=== PATIENT | female | born 1990 | race Caucasian/White ===

== ENCOUNTER 2017-05-31 04:51 | Emergency (ER) | payer OTHER ==
[2017-05-31 05:29] VITALS: BP 117/78; PULSE 74; TEMP 97.8; BMI 30.1
--- NOTE | 2017-05-31 05:41 | PDOC ---
History of Present Illness <Jcarlos Cortes - Last Filed: 05/31/17 05:42> - General History Source: Patient Exam Limitations: No Limitations - History of Present Illness Initial Comments: 05/31/17 06:33 The patient is a 26 year old female with no significant past medical history who presents to the ED for right ear discomfort prior to arrival. Patient reports she woke up around 3:30am when she felt disocmfort and ""something crawling"" in her right ear. States she shook her head and subsequently felt the sensation resolved, but her right ear felt clogged. Denies any recent cold- like symptoms except for sneezing secondary to seasonal allergies. Denies loss of hearing. The patient denies fever, chills, cough, SOB, chest pain, and palpitations. The patient denies abdominal pain, nausea, vomiting, and diarrhea. <Yina Kline - Last Filed: 05/31/17 06:34> - General Chief Complaint: Ear Problem Stated Complaint: EAR PAIN Time Seen by Provider: 05/31/17 05:10 Past History - Psycho/Social/Smoking Cessation Hx Suicidal Ideation: No Smoking History: Never smoked Have you smoked in the past 12 months: No Information on smoking cessation initiated: No Hx Alcohol Use: No Drug/Substance Use Hx: No Substance Use Type: None <Jcarlos Cortes - Last Filed: 05/31/17 05:42> <Yina Kline - Last Filed: 05/31/17 06:34> - Past Medical History Allergies/Adverse Reactions: Allergies Allergy/AdvReac Type Severity Reaction Status Date / Time No Known Allergies Allergy Verified 05/31/17 05:12 Home Medications: Ambulatory Orders NK [No Known Home Medication] 05/31/17 Review of Systems - Review of Systems Able to Perform ROS?: Yes Comments:: 05/31/17 06:33 CONSTITUTIONAL: No reported: Fever, Chills, Diaphoresis, Generalized Weakness, Malaise, Loss of Appetite HEENT: +right ear discomfort and fullness sensation No reported: Rhinorrhea, Nasal Congestion, Throat Pain, Throat Swelling, Difficulty Swallowing, Mouth Swelling , Eye Pain, Visual Changes MUSCULOSKELETAL: No reported: Myalgia, Arthralgia, Joint Swelling, Back pain, Neck Pain SKIN: No reported: Rash, Itching, Pallor NEUROLOGIC: No reported: Headache, Focal Weakness, Paresthesias, Vertigo, Lightheadedness, Unsteady Gait, Seizure, Mental Status Changes, Incontinence <RaisaYina - Last Filed: 05/31/17 06:34> *Physical Exam - Vital Signs Last Vital Signs Temp Pulse Resp BP Pulse Ox 97.8 F 74 18 117/78 100 05/31/17 05:10 05/31/17 05:10 05/31/17 05:10 05/31/17 05:10 05/31/17 05:10 <Jcarlos Cortes - Last Filed: 05/31/17 05:42> - Vital Signs Last Vital Signs Temp Pulse Resp BP Pulse Ox 97.8 F 74 18 117/78 100 05/31/17 05:10 05/31/17 05:10 05/31/17 05:10 05/31/17 05:10 05/31/17 05:10 - Physical Exam Comments: 05/31/17 06:34 GENERAL: The patient is awake, alert, and fully oriented, Nontoxic - in no acute distress. HEAD: Normocephalic, atraumatic. EYES: extraocular movements intact, sclera anicteric, conjunctiva clear. ENT: Normal voice, Moist mucous membranes. Dull TM bilaterally, no erythema, no fluid level, no mastoid tenderness NECK: Normal range of motion, supple. No cervical lymphadenopathy. EXTREMITIES: Normal range of motion, no edema. No clubbing or cyanosis. No cords , erythema, or tenderness. NEUROLOGICAL: No facial assymetry, Normal speech, SKIN: Warm, Dry, normal turgor, <RaisaYina - Last Filed: 05/31/17 06:34> Medical Decision Making - Medical Decision Making 05/31/17 05:39 26y F no pmhx presens with sensation of something crawling inher hear when she was sleeping and is feeling a fulness sensation in her R ear. no other complaints including fever/chills, ear pain, headache, or other complaints.\\no signs of otitis media/externa no fb noted in ear a bit dull tm, but no erythema, fluid level or other abnormalites noted will dc the pt with supportive management and ENT fu if not better I discussed the physical exam findings, ancillary test results and final diagnoses with the patient. I answered all of the patient's questions. The patient was satisfied with the care received and felt comfortable with the discharge plan and treatment plan. The patient will call their primary care physician within 24 hours to arrange follow-up and will return to the Emergency Department with any new, persistent or worsening symptoms. A portion of this note was documented by scribe services under my direction. I have reviewed the details of the note, within reason, and agree with the documentation with the following case summary and management plan written by me <Jcarlos Cortes - Last Filed: 05/31/17 05:42> *DC/Admit/Observation/Transfer - Discharge Dispostion Admit: No <Jcarlos Cortes - Last Filed: 05/31/17 05:42> - Attestations Scribe Attestion: 05/31/17 06:34 Documentation prepared by Yina Kline, acting as medical sales consultant for Jcarlos Cortes MD, /DO. <Yina Kline - Last Filed: 05/31/17 06:34> Diagnosis at time of Disposition: Ear fullness Qualifiers: Laterality: right Qualified Code(s): H93.8X1 - Other specified disorders of right ear - Discharge Dispostion Disposition: HOME Condition at time of disposition: Improved - Referrals Referrals: Hua Ruiz MD [Staff Physician] - - Patient Instructions Printed Discharge Instructions: DI for Ear Pain-Adult Additional Instructions: If your symptoms do not improve in 2-3 days or if it is worse or he has difficulty hearing, headache, fevers, chills or other concerns please follow-up with ENT. Print Language: CHADIAN
== END 2017-05-31 05:55 | disposition home or self-care (01) ==
LOC: JER 04:51
DX: H93.8X1 Other specified disorders of right ear (principal)
CPT/HCPCS: 99281-25

== ENCOUNTER 2017-07-01 06:11 | Inpatient (IN) | payer OTHER ==
[2017-07-01] MEDS ORDERED: ACETAMINOPHEN 325 MG TABLET (FP) PO ONE (06:49)
[2017-07-01] MEDS ORDERED: ACETAMINOPHEN 325 MG TABLET (FP) ONE (06:57)
--- NOTE | 2017-07-01 07:17 | PDOC ---
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 Dutta is a 26 year old female with significant past medical history of IUD who presents to the emergency department with 1 week history of perineal pain that has been increasing over the past week. She reports the pain is increased with any pressure either directly or sitting and that she has had difficulty urinating / defecating due to the pain (however denies pain with actual urination or defecation). She saw an OBGYN 3 days ago who prescribed aleve and had an US done yesterday with no positive results. The patient denies chest pain, shortness of breath, headache and dizziness. Denies fever, chills, nausea, vomit, diarrhea and constipation. Denies dysuria, frequency, urgency and hematuria. Allergies: NKDA Past surgical history: 2 c-sections Social history: social EtOH PMD - None 07/01/17 08:03 Past History - Past Medical History Allergies/Adverse Reactions: Allergies Allergy/AdvReac Type Severity Reaction Status Date / Time No Known Allergies Allergy Verified 07/01/17 06:32 Home Medications: Ambulatory Orders NK [No Known Home Medication] 05/31/17 Other medical history: Pt denies - Psycho/Social/Smoking Cessation Hx Suicidal Ideation: No Smoking History: Never smoked Have you smoked in the past 12 months: No Information on smoking cessation initiated: No Hx Alcohol Use: No Drug/Substance Use Hx: No Substance Use Type: None Review of Systems - Review of Systems Comments:: 07/01/17 07:08 GENERAL/CONSTITUTIONAL: No fever or chills. No weakness. HEAD, EYES, EARS, NOSE AND THROAT: No change in vision. No ear pain or discharge. No sore throat. CARDIOVASCULAR: No chest pain or shortness of breath RESPIRATORY: No cough, wheezing, or hemoptysis. GASTROINTESTINAL: +1 week history of perineal pain. No nausea, vomiting, diarrhea or constipation. GENITOURINARY: No dysuria, frequency, or change in urination. MUSCULOSKELETAL: No joint or muscle swelling or pain. No neck or back pain. SKIN: No rash NEUROLOGIC: No headache, vertigo, loss of consciousness, or change in strength/ sensation. ENDOCRINE: No increased thirst. No abnormal weight change HEMATOLOGIC/LYMPHATIC: No anemia, easy bleeding, or history of blood clots. ALLERGIC/IMMUNOLOGIC: No hives or skin allergy. *Physical Exam - Vital Signs Last Vital Signs Temp Pulse Resp BP Pulse Ox 97.9 F 104 H 20 124/76 99 07/01/17 06:33 07/01/17 06:33 07/01/17 06:33 07/01/17 06:33 07/01/17 06:33 - Physical Exam Comments: 07/01/17 07:08 GENERAL: +Patient uncomfortable appearing. Awake, alert, and fully oriented, in no acute distress HEAD: No signs of trauma, normocephalic, atraumatic EYES: PERRLA, EOMI, sclera anicteric, conjunctiva clear ENT: Auricles normal inspection, hearing grossly normal, nares patent, oropharynx clear without exudates. Moist mucosa NECK: Normal ROM, supple, no lymphadenopathy, JVD, or masses LUNGS: No distress, speaks full sentences, clear to auscultation bilaterally HEART: Regular rate and rhythm, normal S1 and S2, no murmurs, rubs or gallops, peripheral pulses normal and equal bilaterally. ABDOMEN: Soft, nontender, normoactive bowel sounds. No guarding, no rebound. No masses EXTREMITIES: Normal inspection, Normal range of motion, no edema. No clubbing or cyanosis. NEUROLOGICAL: Cranial nerves II through XII grossly intact. Normal speech, normal gait, no focal sensorimotor deficits SKIN: Warm, Dry, normal turgor, no rashes or lesions noted. : +Pelvic exam positive for cabrera cottage cheese exudate ED Treatment Course - LABORATORY CBC & Chemistry Diagram: 07/01/17 08:06 07/01/17 08:10 Medical Decision Making - Medical Decision Making 07/01/17 08:05 Ms. Dutta presents with 1 week history of perineal pain. She denies any change in bowel movements or urinating and she and her are monogamous with no other sexual partners (confirmed individually while out of the room). Pelvic exam yielded classic cabrera cottage cheese type exudate. Suspect cause of symptoms but after negative outside US will get Pelvic CT to r/o other pathology. 07/01/17 09:10 Serum negative, 150 mg oral diflucan given to treat yeast infection. 07/01/17 10:31 Perineal fluid collection noted as abscess on CT as well as proctitis. Will admit to [facility] for management. 07/01/17 11:57 Discussed pt w/ Dr. Larkin for surgery. Trae will consult and take pt for surgery today if able. *DC/Admit/Observation/Transfer Diagnosis at time of Disposition: Proctitis, Abscess - Discharge Dispostion Admit: Yes - Referrals - Attestations Physician Attestion: 07/01/17 08:07 I, Dr. Marco Antonio Maier, attest that this document has been prepared under my direction and personally reviewed by me in its entirety. I further attest, that it accurately reflects all work, treatment, procedures and medical decision -making performed by me.
--- NOTE | 2017-07-01 07:58 | PDOC ---
Attending Attestation - Resident Resident Name: Marco Antonio Maier - ED Attending Attestation I have performed the following: I have examined & evaluated the patient, The case was reviewed & discussed with the resident, I agree w/resident's findings & plan, Exceptions are as noted - HPI HPI: 07/01/17 07:54 26-year-old female with no past medical history presents with perineal pain for one week. Patient reports that she's not been sexually active this week. She is accompanied by her . Patient reported a constant achy perineal pain. Denies dysuria, vaginal discharge, diarrhea or rectal pain. 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 2 days ago, had an ultrasound which does show no acute finding. Patient does have an IUD. Denies fevers or chills. Came to the ED for further evaluation. - Physicial Exam PE: 07/01/17 07:57 GENERAL: Awake, alert, and fully oriented, in no acute distress. HEAD: No signs of trauma EYES: PERRLA, EOMI, sclera anicteric, conjunctiva clear ENT: Auricles normal inspection, hearing grossly normal, nares patent, oropharynx clear without exudates. NECK: Normal ROM, supple, no lymphadenopathy, JVD, or masses LUNGS: Breath sounds equal, clear to auscultation bilaterally. No wheezes, and no crackles HEART: Regular rate and rhythm, normal S1 and S2, no murmurs, rubs or gallops ABDOMEN: Soft, nontender, normoactive bowel sounds. No guarding, no rebound. No masses EXTREMITIES: Normal range of motion, no edema. No clubbing or cyanosis. No cords, erythema, or tenderness NEUROLOGICAL: Cranial nerves II through XII grossly intact. Normal speech, normal gait SKIN: Warm, Dry, normal turgor, no rashes or lesions noted. RN OSTOMY: Bimanual as per resident. +cottage cheese discharge - Medical Decision Making 07/01/17 07:57 Vital Signs Temp Pulse Resp BP Pulse Ox 97.9 F 104 H 20 124/76 99 07/01/17 06:33 07/01/17 06:33 07/01/17 06:33 07/01/17 06:33 07/01/17 06:33 26 year old female presents with persistent perineal pain. Patient's physical exam demonstrates a vaginal yeast infection. Urine test. If negative, give diflucan. CAT scan the abdomen pelvis to rule out other etiologies such as abscess. If negative, medications and discharge her follow-up with RN OSTOMY. 07/01/17 10:47 CBC, BMP 07/01/17 08:06 07/01/17 08:10 CMP Sodium 133 mmol/L (136-145) L 07/01/17 08:10 Potassium 3.5 mmol/L (3.5-5.1) 07/01/17 08:10 Chloride 98 mmol/L (98-107) 07/01/17 08:10 Carbon Dioxide 25 mmol/L (21-32) 07/01/17 08:10 Anion Gap 10 (8-16) 07/01/17 08:10 BUN 10 mg/dL (7-18) 07/01/17 08:10 Creatinine 0.7 mg/dL (0.55-1.02) 07/01/17 08:10 Random Glucose 122 mg/dL (74-106) H 07/01/17 08:10 Calcium 8.7 mg/dL (8.5-10.1) 07/01/17 08:10 Serum , Qual Negative 07/01/17 08:10 CT scan of pelvis demonstrates perineal abscess and proctitis. Blood cultures ordered. Empiric vanc and zosyn. Surgical consultation. Admission to the hospital.
[2017-07-01 08:23] LABS: BASOPHIL 0.1 % (0-2.0); EOSINOPHIL 0.1 % (0-4.5); MCH 30.9 pg (25.7-33.7); MCHC 33.2 g/dl (32.0-36.0); MEAN CELL VOLUME 93.1 fl (80-96); NEUTROPHILS 89.8 % (42.8-82.8); PLATELET COUNT 243 K/MM3 (134-434); RDW 12.8 % (11.6-15.6); WHITE BLOOD COUNT 17.2 K/mm3 (4.0-10.0)
[2017-07-01 09:00] LABS: ANION GAP 10 (8-16); CALCIUM 8.7 mg/dL (8.5-10.1); CO2 25 mmol/L (21-32); CREATININE 0.7 mg/dL (0.55-1.02); GLUCOSE,RANDOM 122 mg/dL (74-106)
[2017-07-01] MEDS ORDERED: FLUCONAZOLE 50 MG TABLET PO ONE (09:09)
[2017-07-01] MEDS ORDERED: SODIUM CHLORIDE 1,000 ML IV STA (09:23)
[2017-07-01] MEDS ORDERED: FLUCONAZOLE 100 MG TABLET (UD) ONE (09:40)
[2017-07-01 10:10] LABS: URINE APPEARANCE CLEAR; URINE BILIRUBIN NEGATIVE (NEGATIVE); URINE BLOOD 1+ (NEGATIVE); URINE COLOR STRAW; URINE GLUCOSE (UA) NEGATIVE (NEGATIVE); URINE KETONE NEGATIVE (NEGATIVE); URINE LEUK ESTERASE NEGATIVE (NEGATIVE); URINE NITRITE NEGATIVE (NEGATIVE); URINE PROTEIN NEGATIVE (NEGATIVE); URINE UROBILINOGEN NEGATIVE mg/dL (0.2-1.0)
[2017-07-01 10:21] LABS: URINE BACTERIA RARE /hpf (NONE SEEN); URINE RBC 1 /hpf (0-3); URINE WBC 2 /hpf (3-5)
[2017-07-01] MEDS ORDERED: SODIUM CHLORIDE 2,000 ML IV STA (10:47)
[2017-07-01] MEDS ORDERED: PIPERACILLIN/TAZOB 3.375 GM/50 ML PRE-DOCKED IVPB ONE (10:50)
[2017-07-01] MEDS ORDERED: VANCOMYCIN 1,000 MG in DEXTROSE 5%-WATER - 250 ML IVPB ONE (10:50)
[2017-07-01] MEDS ORDERED: VANCOMYCIN 1 GRAM (PRE-DOCKED) 250 ML IVPB ONE (11:34)
[2017-07-01] MEDS ORDERED: PIPERACILLIN/TAZOB 3.375 GM 50 ML IVPB ONE (11:35)
[2017-07-01] MEDS ORDERED: morphine CARPU-JECT 2 MG/1 ML DISP.SYRIN IVPUSH PRN (11:42)
[2017-07-01] MEDS ORDERED: ONDANSETRON 4 MG/2 ML VIAL IVPB PRN ×2 (11:42→17:56)
[2017-07-01] MEDS ORDERED: ACETAMINOPHEN 325 MG TABLET (FP) PO PRN ×2 (11:42→17:56)
[2017-07-01] MEDS ORDERED: SODIUM CHLORIDE 1,000 ML IV SCH ×2 (11:45→12:00)
[2017-07-01] MEDS ORDERED: morphine CARPU-JECT 4 MG/1 ML DISP.SYRIN ONE (12:17)
--- NOTE | 2017-07-01 13:23 | HP ---
CHIEF COMPLAINT: Rectal pain PCP: None HISTORY OF PRESENT ILLNESS: This is an otherwise healthy 26 year old female who presented to the ED today complaining of of perineal pain and swelling since Tuesday. She has not noticed any erythema or discharge in the area. She denies abnormal vaginal discharge. She has been urinating and stooling normally, although both are painful. She denies fevers/chills. She had a pelvic ultrasound with her outside tile layer supervisor on Tuesday which revealed no acute pathology. ER course was notable for: (1) WBC 17.2 with 89.8% neutrophils (2) Pelvic CT: Proctitis with surrounding inflammation and horseshoe-shaped perirectal fluid collection 2.6 x 2.9 x 3 cm. 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 Smoking: None Alcohol: None Drugs: None Family History: Non-contributory to this admission Allergies No Known Allergies Allergy (Verified 07/01/17 06:32) HOME MEDICATIONS: Home Medications Medication Instructions Recorded NK [No Known Home Medication] 05/31/17 REVIEW OF SYSTEMS CONSTITUTIONAL: Absent: fever, chills, diaphoresis, generalized weakness, malaise, loss of appetite, weight change HEENT: Absent: rhinorrhea, nasal congestion, throat pain, throat swelling, difficulty swallowing, mouth swelling, ear pain, eye pain, visual changes CARDIOVASCULAR: Absent: chest pain, syncope, palpitations, irregular heart rate, lightheadedness , peripheral edema RESPIRATORY: Absent: cough, shortness of breath, dyspnea with exertion, orthopnea, wheezing, stridor, hemoptysis GASTROINTESTINAL: Pain with defecation Absent: abdominal pain, abdominal distension, nausea, vomiting, diarrhea, constipation, melena, hematochezia GENITOURINARY: Absent: dysuria, frequency, urgency, hesitancy, hematuria, flank pain, genital pain MUSCULOSKELETAL: Absent: myalgia, arthralgia, joint swelling, back pain, neck pain SKIN: Absent: rash, itching, pallor HEMATOLOGIC/IMMUNOLOGIC: Absent: easy bleeding, easy bruising, lymphadenopathy, frequent infections ENDOCRINE: Absent: unexplained weight gain, unexplained weight loss, heat intolerance, cold intolerance NEUROLOGIC: Absent: headache, focal weakness or paresthesias, dizziness, unsteady gait, seizure, mental status changes, bladder or bowel incontinence PSYCHIATRIC: Absent: anxiety, depression, suicidal or homicidal ideation, hallucinations. PHYSICAL EXAMINATION Vital Signs - 24 hr 07/01/17 11:55 Temperature 98.4 F Pulse Rate [ 95 H Right Radial] Respiratory 16 Rate Blood Pressure 108/57 [Left Arm] O2 Sat by Pulse 100 Oximetry (%) GENERAL: Awake, alert, and fully oriented, in no acute distress. HEAD: Normal with no signs of trauma. EYES: Pupils equal, round and reactive to light, extraocular movements intact, sclera anicteric, conjunctiva clear. No lid lag. EARS, NOSE, THROAT: Ears normal, nares patent, oropharynx clear without exudates. Moist mucous membranes. NECK: Normal range of motion, supple without lymphadenopathy, JVD, or masses. LUNGS: Breath sounds equal, clear to auscultation bilaterally. No wheezes, and no crackles. No accessory muscle use. HEART: Regular rate and rhythm, normal S1 and S2 without murmur, rub or gallop. ABDOMEN: Soft, nontender, not distended, normoactive bowel sounds, no guarding, no rebound, no masses. No hepatomegaly or splenomegaly. MUSCULOSKELETAL: Normal range of motion at all joints. No bony deformities or tenderness. No CVA tenderness. UPPER EXTREMITIES: 2+ pulses, warm, well-perfused. No cyanosis. No clubbing. No peripheral edema. LOWER EXTREMITIES: 2+ pulses, warm, well-perfused. No calf tenderness. No peripheral edema. NEUROLOGICAL: Cranial nerves II-XII intact. Normal speech. Normal gait. PSYCHIATRIC: Cooperative. Good eye contact. Appropriate mood and affect. SKIN: Warm, dry, normal turgor, no rashes or lesions noted, normal capillary refill. /Rectal: Extensive perirectal erythema, swelling, and tenderness. Thick, white vaginal discharge. ASSESSMENT/PLAN: Healthy 26 year old female with casey-rectal abscess. Problem List - Problem (1) Perirectal abscess Assessment/Plan: -Given Vancomycin/Zosyn in ED -Continue Unasyn postoperatively with plan to transition to Augmentin -weight caller for OR at 2:30pm for incision and drainage with drain placement Code(s): K61.1 - RECTAL ABSCESS (2) Proctitis Assessment/Plan: -Likely referable to above -Send chlamydia cultures -Consider workup for UC as outpatient if symptoms persist Code(s): K62.89 - OTHER SPECIFIED DISEASES OF ANUS AND RECTUM (3) Sepsis Assessment/Plan: -Secondary to abscess -Monitor WBC, fever curve, HR -Continue abx as above -Follow up blood cultures Code(s): A41.9 - SEPSIS, UNSPECIFIED ORGANISM (4) DVT prophylaxis Assessment/Plan: -Moderate risk -SCDs -Early ambulation Code(s): [id number] - Visit type - Emergency Visit Emergency Visit: Yes ED Registration Date: 07/01/17 Care time: The patient presented to the Emergency Department on the above date and was hospitalized for further evaluation of their emergent condition. - New Patient This patient is new to me today: Yes Date on this admission: 07/01/17 - Critical Care Critical Care patient: No
[2017-07-01] MEDS ORDERED: morphine CARPU-JECT 4 MG/1 ML DISP.SYRIN IVPUSH PRN ×2 (13:54→17:56)
[2017-07-01] MEDS ORDERED: DOCUSATE SODIUM 100 MG CAPSULE (FP) PO SCH (14:00)
--- NOTE | 2017-07-01 14:14 | CONSULT ---
Consult Consult Specialty:: General Surgery Referred by:: Dr. Ramirez Reason for Consultation:: perirectal abscess with proctitis - History of Present Illness Chief Complaint: perineal pain and swelling R>L History of Present Illness: 26yo healthy F with h/o x2 and IUD placement 1yr ago presented with 1 week of perineal discomfort starting last Tuesday, which progressively worsened until it became significant on Tuesday, associated then with some swelling of the perineal area as well, which has progressed even further until today, when she came to the ER. Denies fever/chills, nausea/vomiting, abdominal pain, dysuria; still having bowel movements, this morning was a little loose. She has had troube walking because of the pain, and has had somewhat decreased appetite and headaches over the last week, which she attributes in part to the pain. The pain is more on the right than the left. 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 She was given IV fluids, Vanco and Zosyn. She had a granola bar at 6:30am and some water around 10am, but has been NPO otherwise. Surgery is consulted for the perirectal abscess. She has been admitted to hospitalist service. - History Source History Provided By: Patient Limitations to Obtaining History: No Limitations - Past Medical History ...: No ...: 2 ...Para: 2 - Past Surgical History Past Surgical History: Yes: (x2) Additional Surgical History: IUD in place x 1 year - Alcohol/Substance Use Hx Alcohol Use: Yes (social/holidays) History of Substance Use: reports: None - Smoking History Smoking history: Never smoked Have you smoked in the past 12 months: No - Social History Usual Living Arrangement: With Spouse Home Medications - Allergies Allergies/Adverse Reactions: Allergies Allergy/AdvReac Type Severity Reaction Status Date / Time No Known Allergies Allergy Verified 07/01/17 06:32 - Home Medications Home Medications: Ambulatory Orders NK [No Known Home Medication] 05/31/17 Family Disease History - Family Disease History Family History: Denies Review of Systems - Review of Systems Constitutional: denies: Chills, Fever Eyes: denies: Blurred Vision, Double Vision HENT: denies: Difficult Swallowing, Nasal Congestion, Throat Pain Neck: denies: Swollen Glands, Tenderness Cardiovascular: denies: Chest Pain, Palpitations Respiratory: denies: Cough, SOB Gastrointestinal: denies: Abdominal Pain, Constipation, Diarrhea, Nausea, Rectal Bleeding, Vomiting Genitourinary: denies: Burning, Dysuria Musculoskeletal: denies: Back Pain, Joint Pain, Muscle Pain Integumentary: denies: Bruising, Rash Neurological: reports: Headache (in last week at times). denies: Dizziness Psychiatric: denies: Anxiety, Depression Physical Exam Vital Signs: Vital Signs Temperature 98.4 F 07/01/17 11:55 Pulse Rate 95 H 07/01/17 11:55 Respiratory Rate 16 07/01/17 11:55 Blood Pressure 108/57 07/01/17 11:55 O2 Sat by Pulse Oximetry (%) 100 07/01/17 11:55 Constitutional: Yes: Well Nourished, No Distress, Calm Eyes: Yes: Conjunctiva Clear, EOM Intact HENT: Yes: Atraumatic, Normocephalic Cardiovascular: Yes: Tachycardia, Murmur (systolic). No: Pulse Irregular Respiratory: Yes: Regular, CTA Bilaterally Gastrointestinal: Yes: Soft, Hypoactive Bowel Sounds. No: Tenderness ...Rectal Exam: Yes: Deferred, Erythema, Inflammation, Other (bilateral edema/ swelling of perineum, R slightly greater than L, very tender R>L, erythematous, no specific pointing area, difficult to separate enough to see anus secondary to pain, but no external hemorrhoids or purulence from anus; some thin, whitish exudate from vagina) Renal/: No: CVA Tenderness - Left, CVA Tenderness - Right Musculoskeletal: No: Joint Stiffness, Joint Swelling Extremities: No: Cool, Cyanosis Peripheral Pulses WNL: Yes Integumentary: No: Jaundice, Rash Neurological: Yes: Alert, Oriented Psychiatric: Yes: Alert, Oriented Labs: CBC, BMP 07/01/17 08:06 07/01/17 08:10 Imaging - Results Cat Scan: Report Reviewed, Image Reviewed Problem List - Problems (1) Ischiorectal abscess Assessment/Plan: NPO/IVF Pt has started antibiotics Discussed R/B/A of incision and drainage of perirectal abscess with patient including but not limited to bleeding, infection, fistula formation, sphincter injury. Pt agrees to operative intervention. Plan for drainage and [place] drain placement in OR. Informed consent signed and on chart. Admission postop to hospitalist for IV antibiotics for surrounding cellulitis Pain meds prn Anticipate d/c on antibiotics and f/u in clinic next Tuesday for drain removal To resume diet after operation Code(s): K61.3 - ISCHIORECTAL ABSCESS (2) Proctitis Assessment/Plan: Secondary to perirectal abscess See above Code(s): K62.89 - OTHER SPECIFIED DISEASES OF ANUS AND RECTUM Assessment/Plan Thank you for the opportunity to participate in the care of this patient.
[2017-07-01] MEDS ORDERED: MIDAZOLAM HCL 2 MG/2 ML SINGLE DOSE VIAL ONE (14:16)
[2017-07-01] MEDS ORDERED: AMPICILLIN NA/SULBACTAM NA 1.5 GM VIAL ONE (16:15)
[2017-07-01] MEDS ORDERED: PROPOFOL 20 ML ONE ×3 (16:26→17:00)
[2017-07-01] MEDS ORDERED: AMPICILLIN NA/SULBACTAM NA 3 GM/100 ML PRE-DOCKED IVPB ONE (16:43)
[2017-07-01] MEDS ORDERED: BUPIVACAINE HCL/PF (5 MG/ML) 30 ML VIAL IJ ONE (16:46)
[2017-07-01] MEDS ORDERED: oxyCODONE HCL 5 MG TABLET PO PRN ×2 (17:28→17:56)
--- NOTE | 2017-07-01 17:29 | OP ---
Operative Note - Note: Operative Date: 07/01/17 Pre-Operative Diagnosis: perirectal abscess Operation: incision and drainage of perirectal abscess Findings: foul-smelling pus, cultured, cavity with horseshoe aspect over to left side Post-Operative Diagnosis: Same as Pre-op Surgeon: Brian Larkin Anesthesiologist/DOVETAILER: Ramez Persaud Anesthesia: General, Local (10ml 0.5% marcaine) Specimens Removed: pus cultured on swab to micro Estimated Blood Loss (mls): 5 Drains & Tubes with Location: 20Fr Pezzer drain in abscess cavity, R perineum Fluid Volume Replaced (mls): 700 (crystalloid) Operative Report Dictated: Yes
[2017-07-01] MEDS ORDERED: AMPICILLIN NA/SULBACTAM NA 3 GM in SODIUM CHLORIDE 100 ML IVPB SCH (18:00)
[2017-07-01] MEDS: DOCUSATE SODIUM 100 MG CAPSULE (FP) PO SCH (22:36)
[2017-07-01] MEDS: oxyCODONE HCL 5 MG TABLET PO PRN (22:36)
[2017-07-01] MEDS: ACETAMINOPHEN 325 MG TABLET (FP) PO PRN (22:38)
[2017-07-01] MEDS: SODIUM CHLORIDE 1,000 ML IV SCH (22:39)
[2017-07-02 00:44] VITALS: BMI 30.1
[2017-07-02] MEDS ORDERED: AMPICILLIN NA/SULBACTAM NA 3 GM in SODIUM CHLORIDE 100 ML IVPB SCH (02:00)
[2017-07-02] MEDS: DOCUSATE SODIUM 100 MG CAPSULE (FP) PO SCH ×3 (05:44→22:25)
[2017-07-02] MEDS: oxyCODONE HCL 5 MG TABLET PO PRN ×4 (06:13→23:36)
[2017-07-02 06:59] LABS: BASOPHIL 0.3 % (0-2.0); EOSINOPHIL 0.8 % (0-4.5); MCH 30.4 pg (25.7-33.7); MCHC 32.2 g/dl (32.0-36.0); MEAN CELL VOLUME 94.4 fl (80-96); MEAN PLT VOLUME 7.1 fl (7.5-11.1); NEUTROPHILS 84.3 % (42.8-82.8); PLATELET COUNT 199 K/MM3 (134-434); WHITE BLOOD COUNT 13.8 K/mm3 (4.0-10.0)
[2017-07-02 07:31] LABS: ALBUMIN 2.4 g/dl (3.4-5.0); ANION GAP 8 (8-16); BILIRUBIN,TOTAL 0.7 mg/dL (0.2-1.0); CALCIUM 8.1 mg/dL (8.5-10.1); CO2 26 mmol/L (21-32); CREATININE 0.6 mg/dL (0.55-1.02); GLUCOSE,RANDOM 101 mg/dL (74-106); SGOT/AST 26 U/L (15-37); SGPT/ALT 38 U/L (12-78); TOT PROT 5.8 g/dl (6.4-8.2)
[2017-07-02 07:32] LABS: ALK PHOS 105 U/L (45-117)
--- NOTE | 2017-07-02 09:35 | PN ---
Progress Note (short form) - Note Progress Note: ID Consult dictated POD #1 I&D perineal abscess Proctitis ? inflammatory bowel disease ? infectious Fever/ leukocytosis Pending cultures, empiric zosyn
[2017-07-02] MEDS ORDERED: PT OWN MED DRAWER 7, Y5N ONE (09:52)
[2017-07-02] MEDS: ACETAMINOPHEN 325 MG TABLET (FP) PO PRN ×3 (10:44→23:37)
[2017-07-02] MEDS: PIPERACILLIN/TAZOB 4.5 GM 100 ML IVPB SCH ×2 (10:45→17:50)
--- NOTE | 2017-07-02 10:56 | OP ---
DATE OF OPERATION: 07/01/2017 PREOPERATIVE DIAGNOSIS: Perirectal abscess. POSTOPERATIVE DIAGNOSIS: Perirectal abscess. PROCEDURE: Incision and drainage of perirectal abscess. SURGEON: Brian Larkin MD ANESTHESIA: General without artificial airway and local, a total of 10 mL of 0.5% Marcaine. ESTIMATED BLOOD LOSS: 5 mL. FLUID: Crystalloid, 700 mL. SPECIMEN: Pus on swab for culture to Microbiology. DRAINS: A 20-Indian Pezzer drain at the right perineum into the abscess cavity. FINDINGS: Foul-smelling pus was encountered and evacuated and cultured. There was an aspect of the abscess cavity that horseshoed over to the left side. DISPOSITION: Stable and awake to PACU. INDICATIONS FOR PROCEDURE: Patient is a 26-year-old generally healthy female who began experiencing perineal discomfort a week ago which was progressively worsening until it became very significant 3 days prior to presentation to the emergency room on Tuesday, at which point she also began noticing some swelling of the perineum , right greater than left. Ultimately, this interfered with walking and although she was still able to void and have bowel movements, the pain became very severe and she presented to the ER. In the emergency room, she had a white count of 17,000, was afebrile, was tachycardic to 100, and had a CT scan showing evidence of a 3 by almost 3-cm perirectal abscess with likely horseshoe aspect around to the left, primarily centered at the right perineum, along with elements of rectal inflammation and proctitis believed secondary to this. She was started on IV fluids and antibiotics in the emergency room. After a discussion of risks, benefits, and alternatives for incision and drainage of the perirectal abscess, including drain placement, she was agreeable to operation and signed informed consent for the same and is now brought to the operating room for that procedure. OPERATIVE TECHNIQUE: The patient was brought to the operating room and laid supine on the operating table. After induction of anesthesia, the patient was placed in lithotomy position with her feet up in leg holders and her anorectal and genital area was prepped with Betadine and draped in sterile fashion. She was placed in Trendelenburg position and a rectal exam was performed, indicating no purulence coming from the anus. No abnormal masses or external hemorrhoids were noted. Exam of the anal canal was then undertaken with retractors. The anal mucosa and canal appeared normal up to and just past the dentate line circumferentially. There were no fistulous areas noted nor any pus coming from the anus. The perineum was palpated and there was no clear area of greatest fluctuance or induration. Thus, 0.5% Marcaine was infiltrated primarily along the right perineum from approximately the anal level up anteriorly where the pocket of pus was noted to be on the CT scan, as well as an area along the left perineum was also infiltrated in case we needed to make a counterincision on that side. The local needle was then used as a finder needle in an attempt to aspirate pus from the left side of the perineum which was unsuccessful. However, pus was encountered at the anterior perineal area on the right side. A spot was then chosen for incision over this site, and the Bovie cautery was used to incise a small cruciate incision at the right perineum just lateral and anterior to the anus. The cavity was entered with the tip of a Olga Lidia clamp with immediate evacuation of foul-smelling pus. This was cultured on a swab and sent to Microbiology. The suction was used to evacuate more pus in the cavity, and a fingertip was inserted to inspect the cavity and ensure that all loculations were broken up. There were a few small loculations to be broken, and the cavity was followed both somewhat deeply as well as anteriorly around to the left side in a slight horseshoe fashion, with findings of more purulence to be evacuated. The suction tip was then used again to evacuate the cavity of as much pus as possible. A 20- Indian Pezzer drain was then selected and 2 additional holes cut at the tip end for a total of 4 openings. This was placed at the tip of a Olga Lidia clamp and introduced into the abscess cavity. A fingertip was used to guide it around the tip of the horseshoe bend so that it could sit in the abscess cavity as far as possible. The cavity was then irrigated with saline solution through the drain and allowed to drain both through and around the Pezzer drain. Once the cavity had been evacuated and the fluid was running clear, the drain was sewn into place with a 2-0 nylon stitch at the skin and trimmed about an inch past the suture. The patient was cleansed of Betadine, and a dressing of gauze was placed over the end of the drain and taped into position. She was returned to neutral position and taken out of the leg holders. The patient was then awakened by Anesthesia. Counts were correct at the end of the procedure. The patient was then returned to a stretcher and taken to the recovery room in stable condition, having tolerated the procedure well. Meme Hernandez/[id number] MTDD
--- NOTE | 2017-07-02 11:04 | CONS ---
INFECTIOUS DISEASE CONSULTATION DATE OF CONSULTATION: DATE OF DICTATION: 07/02/2017 HISTORY OF PRESENT ILLNESS: The patient is a 26-year-old female who was evaluated for proctitis and perineal abscess. The patient presented to the hospital with a 1-week history of worsening perineal pain. It became progressively worse to the point where she was unable to sit due to the discomfort. In addition, she had pain on urination and defecation. She presented to the [facility] and was prescribed nonsteroidals. A sonogram was done and was reported as negative. Because of worsening pain, she presented to the emergency room. She was found on pelvic exam to have a yeast infection. CAT scan of the pelvis was performed and showed diffuse wall thickening of the rectum extending into the inguinal region consistent with proctitis as well as a triangular fluid collection, likely representing an abscess. She was taken to the operating room on July 01, 2017, where an incision and drainage was performed. Cultures are pending. Her course has been complicated by elevated temperature and elevated white blood cell count. Patient denies prior history of GI problems. No history of inflammatory bowel disease. No family history of ulcerative colitis or Crohn's. She is sexually active and monogamous with her . She denies any receptive anal intercourse or insertion of objects into her rectum. PAST MEDICAL HISTORY: As above. PAST SURGICAL HISTORY: Status post section x2 and IUD. ALLERGIES: No known allergies. MEDICATIONS AT THE PRESENT TIME: Include: 1. Zofran. 2. Tylenol. 3. Unasyn. 4. Colace. 5. Morphine. 6. Oxycodone. SOCIAL HISTORY: She is , is sexually active with her , is monogamous. She is a nonsmoker, nondrinker. 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 SYSTEMS REVIEW: Neurologic: No loss of consciousness, seizure activity, or focal weakness. Cardiac: Negative chest pain or palpitations. Respiratory: Negative cough or sputum production. Gastrointestinal: As per HPI. Genitourinary: Negative for urinary tract infection. LABORATORY DATA: White count on admission 17.2, presently 13.8; hematocrit 30.6; platelets 199. BUN 3, creatinine 0.6. Urinalysis: Leukocyte esterase negative. Blood and urine cultures are pending. Chlamydia and GC probes pending. PHYSICAL EXAMINATION: General: She is awake and alert. She is in moderate distress secondary to perineal pain. Vital Signs: Temperature 98.3, T-max 100. Blood pressure 96/51; pulse 98, regular; respirations 18 per minute. HEENT: Sclerae anicteric. Heart: Sounds S1, S2. Lungs: Clear. Abdomen: Soft and nontender. Perineal Area: There is a surgical drain in place in the perineum. There is some brownish drainage noted from the drain. There is exquisite tenderness, slight induration in the perineal area. Extremities: Negative for edema. IMPRESSION: 1. Postoperative day number 1 incision and drainage perineal abscess. 2. Proctitis, possible inflammatory bowel disease versus infectious etiology. 3. Fever, leukocytosis, possible sepsis. Pending cultures, empiric antibiotic coverage with Zosyn. Await chlamydia and GC probes. Surgical followup. Will likely require endoscopic evaluation when clinically improved. Thank you for the kind referral. EBENEZER PIERRE M.D. [id number]
--- NOTE | 2017-07-02 11:51 | PN ---
Physical Exam: SUBJECTIVE: Patient seen and examined at bedside. Eating lunch. Denies pain, has slight discomfort in perianal area. Pain well-managed with PO meds. Mother present. OBJECTIVE: Vital Signs Period Temp Pulse Resp BP Sys/[place]ido Pulse Ox Last 24 Hr 97.8 F-100 F 91-114 13-25 96-131/41-81 98-100 GENERAL: The patient is awake, alert, and fully oriented, in no acute distress. HEAD: Normal with no signs of trauma. LUNGS: Breath sounds equal, clear to auscultation bilaterally, no wheezes, no crackles, no accessory muscle use. HEART: Regular rate and rhythm, S1, S2 without murmur, rub or gallop. ABDOMEN: Soft, nontender, nondistended, normoactive bowel sounds, no guarding, no rebound RECTAL: Pezzer drain in place, minimal serosanguinous drainage on dressing; no surrounding erythema or exudate EXTREMITIES: 2+ pulses, warm, well-perfused, no edema. NEUROLOGICAL: Cranial nerves II through XII grossly intact. Normal speech, gait not observed. Laboratory Results - last 24 hr 07/01/17 07/01/17 07/02/17 11:50 11:50 06:00 WBC 13.8 H RBC 3.24 L Hgb 9.9 L D Hct 30.6 L MCV 94.4 MCH 30.4 MCHC 32.2 RDW 13.0 Plt Count 199 MPV 7.1 L Neutrophils % 84.3 H Lymphocytes % 7.6 L D Monocytes % 7.0 Eosinophils % 0.8 D Basophils % 0.3 ESR 75 H Sodium Potassium Chloride Carbon Dioxide Anion Gap BUN Creatinine Creat Clearance w eGFR Random Glucose Calcium Total Bilirubin AST ALT Alkaline Phosphatase C-Reactive Protein 14.0 H Total Protein Albumin 07/02/17 06:00 WBC RBC Hgb Hct MCV MCH MCHC RDW Plt Count MPV Neutrophils % Lymphocytes % Monocytes % Eosinophils % Basophils % ESR Sodium 142 Potassium 3.4 L Chloride 108 H D Carbon Dioxide 26 Anion Gap 8 BUN 3 L D Creatinine 0.6 Creat Clearance w eGFR > 60 Random Glucose 101 Calcium 8.1 L Total Bilirubin 0.7 AST 26 ALT 38 Alkaline Phosphatase 105 C-Reactive Protein Total Protein 5.8 L Albumin 2.4 L Active Medications Generic Name Dose Route Start Last Admin Trade Name Freq PRN Reason Stop Dose Admin Acetaminophen 325 mg 07/01/17:44 07/02/17 10:44 Tylenol - PO 07/04/17 17:43 325 mg Q4H PRN Administration PAIN Docusate Sodium 100 mg 07/01/17 22:00 07/02/17 05:44 Colace - PO 100 mg TID DIANA Administration Sodium Chloride 1,000 mls @ 75 mls/hr 07/01/17 17:56 07/01/17 22:39 Normal Saline - IV 75 mls/hr ASDIR DIANA Administration Piperacillin Sod/Tazobactam Sod 100 mls @ 200 mls/hr 07/02/17 10:00 07/02/17 10 :45 Zosyn 4.5gm Ivpb (Pre-Docked) IVPB 200 mls/hr Q8H-IV DIANA Administration Protocol Morphine Sulfate 2 mg 07/01/17 17:56 Morphine Injection - IVPUSH Q4H PRN PAIN Ondansetron HCl 4 mg 07/01/17 17:56 Zofran Injection IVPB Q6H PRN NAUSEA Oxycodone HCl 5 mg 07/01/17 17:44 07/02/17 10:43 Roxicodone - PO 5 mg Q4H PRN Administration PAIN Imaging 07/01 CT Pelvis: Bowel: diffuse wall thickening involving the rectum, proctitis suspected; Peritoneum: triangular fluid collection, largest on right, smaller on left, may connect, most likely an abscess ASSESSMENT/PLAN 26 year-old female with no significant PMH admitted for perirectal abscess and proctitis. Perirectal abscess --s/p I&D by Dr. Larkin on 07/01; foul-smelling pus, culture sent; 20F Pezzer drain in place, minimal serosanguinous drainage today --on empiric Zosyn --ID following --rectal C&G and serum C&G cultures pending Proctitis --of uncertain etiology: inflammatory v. infectious --GI consult requested Hypokalemia --repleted F/E/N Fluids: NS @ 75mL/hr Electrolytes: replete as indicated Nutrition: regular diet DVT prophylaxis: lovenox, oob, ambulation Dispo: continues to require inpatient care. Full Code. Visit type - Emergency Visit Emergency Visit: Yes ED Registration Date: 07/01/17 Care time: The patient presented to the Emergency Department on the above date and was hospitalized for further evaluation of their emergent condition. - New Patient This patient is new to me today: Yes Date on this admission: 07/02/17 - Critical Care Critical Care patient: No
--- NOTE | 2017-07-02 14:10 | PN ---
Progress Note (short form) - Note Progress Note: Patient with perirectal abscess s/p incision and drainage with drain placement in OR yesterday. States she feels much better, now with discomfort as opposed to pain in area. No BM yet. Tolerating regular diet. No nausea or fevers. On IV antibiotics and oral pain meds. Vital Signs Period Temp Pulse Resp BP Sys/Salcido Pulse Ox Last 24 Hr 97.8 F-100 F 91-114 13-25 96-131/41-81 98-100 PE: abdomen soft, nontender drain in place at right perineum, some serosang drainage on pads in underwear perineum bilaterally nontender, less swollen, no significant erythema CBC, BMP 07/02/17 06:00 07/02/17 06:00 WBC down from 17 A/P: POD1 s/p I&D with drain for perirectal abscess doing well pt to keep pads in underwear for drainage ok to shower daily and prn after bowel movements to keep area clean pt has my card to f/u in clinic on Tuesday for drain removal would encourage tylenol prn for pain vs percocet as able continue stool softener while using narcotic postop instructions in discharge plan Problem List - Problems (1) Perirectal abscess Assessment/Plan: See above Code(s): K61.1 - RECTAL ABSCESS (2) Proctitis Assessment/Plan: Secondary to perirectal abscess See above Code(s): K62.89 - OTHER SPECIFIED DISEASES OF ANUS AND RECTUM
[2017-07-02] MEDS: SODIUM CHLORIDE 1,000 ML IV SCH ×2 (14:39→17:30)
[2017-07-02] MEDS: POTASSIUM CHLORIDE TABS 20 MEQ TABLET.ER (FP) PO SCH ×2 (14:52→22:24)
[2017-07-02] MEDS: ENOXAPARIN NA (PORCINE) 40 MG/0.4 ML DISP.SYRIN SQ SCH (14:52)
[2017-07-03] MEDS: PIPERACILLIN/TAZOB 4.5 GM 100 ML IVPB SCH ×3 (01:47→18:48)
[2017-07-03] MEDS: oxyCODONE HCL 5 MG TABLET PO PRN (04:48)
[2017-07-03] MEDS: ACETAMINOPHEN 325 MG TABLET (FP) PO PRN ×3 (04:50→19:00)
[2017-07-03] MEDS: DOCUSATE SODIUM 100 MG CAPSULE (FP) PO SCH ×3 (06:23→21:31)
[2017-07-03 08:56] LABS: BASOPHIL 0.6 % (0-2.0); EOSINOPHIL 2.7 % (0-4.5); MCH 31.1 pg (25.7-33.7); MCHC 33.1 g/dl (32.0-36.0); MEAN CELL VOLUME 93.9 fl (80-96); MEAN PLT VOLUME 7.4 fl (7.5-11.1); PLATELET COUNT 213 K/MM3 (134-434); WHITE BLOOD COUNT 7.1 K/mm3 (4.0-10.0)
[2017-07-03 09:23] LABS: ALBUMIN 2.4 g/dl (3.4-5.0); ALK PHOS 88 U/L (45-117); ANION GAP 4 (8-16); BILIRUBIN,TOTAL 0.2 mg/dL (0.2-1.0); CALCIUM 8.4 mg/dL (8.5-10.1); CO2 27 mmol/L (21-32); CREATININE 0.7 mg/dL (0.55-1.02); GLUCOSE,RANDOM 88 mg/dL (74-106); SGOT/AST 31 U/L (15-37); SGPT/ALT 40 U/L (12-78); TOT PROT 5.9 g/dl (6.4-8.2)
[2017-07-03] MEDS: ENOXAPARIN NA (PORCINE) 40 MG/0.4 ML DISP.SYRIN SQ SCH (10:39)
[2017-07-03] MEDS ORDERED: PT OWN MED DRAWER 7, Y5N ONE (11:45)
--- NOTE | 2017-07-03 12:31 | PN ---
Physical Exam: SUBJECTIVE: Patient seen and examined at bedside. With mild discomfort at site of ascess, well-managed with PO Tylenol. OBJECTIVE: Vital Signs Period Temp Pulse Resp BP Sys/[place] Pulse Ox Last 24 Hr 97.9 F-98.1 F 79-97 18-20 102-132/57-70 100 GENERAL: The patient is awake, alert, and fully oriented, in no acute distress. HEAD: Normal with no signs of trauma. LUNGS: Breath sounds equal, clear to auscultation bilaterally, no wheezes, no crackles, no accessory muscle use. HEART: Regular rate and rhythm, S1, S2 without murmur, rub or gallop. ABDOMEN: Soft, nontender, nondistended, normoactive bowel sounds, no guarding, no rebound RECTAL: Pezzer drain in place, again with only minimal serosanguinous drainage on dressing; no surrounding erythema or exudate EXTREMITIES: 2+ pulses, warm, well-perfused, no edema. NEUROLOGICAL: Cranial nerves II through XII grossly intact. Normal speech, gait not observed. Laboratory Results - last 24 hr 07/03/17 07/03/17 07:50 07:50 WBC 7.1 D RBC 3.23 L Hgb 10.0 L Hct 30.3 L MCV 93.9 MCH 31.1 MCHC 33.1 RDW 13.0 Plt Count 213 MPV 7.4 L Neutrophils % 70.0 Lymphocytes % 19.7 D Monocytes % 7.0 Eosinophils % 2.7 D Basophils % 0.6 Sodium 140 Potassium 4.5 D Chloride 109 H Carbon Dioxide 27 Anion Gap 4 L BUN 4 L D Creatinine 0.7 Creat Clearance w eGFR > 60 Random Glucose 88 Calcium 8.4 L Magnesium 2.0 Total Bilirubin 0.2 D AST 31 ALT 40 Alkaline Phosphatase 88 Total Protein 5.9 L Albumin 2.4 L Active Medications Generic Name Dose Route Start Last Admin Trade Name Freq PRN Reason Stop Dose Admin Acetaminophen 650 mg 07/03/17 10:48 07/03/17 12:20 Tylenol - PO 07/04/17 17:43 650 mg Q6H PRN Administration PAIN Docusate Sodium 100 mg 07/01/17 22:00 07/03/17 06:23 Colace - PO 100 mg TID DIANA Administration Enoxaparin Sodium 40 mg 07/02/17 14:00 07/03/17 10:39 Lovenox - SQ 40 mg DAILY DIANA Administration Sodium Chloride 1,000 mls @ 75 mls/hr 07/01/17 17:56 07/02/17 17:30 Normal Saline - IV Not Given ASDIR DIANA Piperacillin Sod/Tazobactam Sod 100 mls @ 200 mls/hr 07/02/17 10:00 07/03/17 10 :40 Zosyn 4.5gm Ivpb (Pre-Docked) IVPB 200 mls/hr Q8H-IV DIANA Administration Protocol Ondansetron HCl 4 mg 07/01/17 17:56 Zofran Injection IVPB Q6H PRN NAUSEA Imaging 07/01 CT Pelvis: Bowel: diffuse wall thickening involving the rectum, proctitis suspected; Peritoneum: triangular fluid collection, largest on right, smaller on left, may connect, most likely an abscess ASSESSMENT/PLAN 26 year-old female with no significant PMH admitted for perirectal abscess and proctitis. Perirectal abscess --s/p I&D by Dr. Larkin on 07/01; foul-smelling pus, culture sent; 20F Pezzer drain in place, minimal serosanguinous drainage --RPR, rectal C&G, and serum C&G cultures pending --continue empiric Zosyn (day #2) --has not had BM yet; bowel regimen: colace, Miralax Proctitis --of uncertain etiology: inflammatory v. infectious --GI consult requested Hypokalemia --resolved F/E/N Fluids: PO intake adequate Electrolytes: replete as indicated Nutrition: regular diet DVT prophylaxis: lovenox, oob, ambulation Dispo: continues to require inpatient care. Full Code. Visit type - Emergency Visit Emergency Visit: Yes ED Registration Date: 07/01/17 Care time: The patient presented to the Emergency Department on the above date and was hospitalized for further evaluation of their emergent condition. - New Patient This patient is new to me today: No - Critical Care Critical Care patient: No
--- NOTE | 2017-07-03 12:37 | PN ---
Progress Note (short form) - Note Progress Note: Patient with perirectal abscess s/p incision and drainage with drain placement in OR. Feeling well, some discomfort only. Tolerating regular diet. No nausea or fevers. On IV antibiotics and oral pain meds. Just had soft BM, has not cleaned up yet. Vital Signs Period Temp Pulse Resp BP Sys/Salcido Pulse Ox Last 24 Hr 97.8 F-100 F 91-114 13-25 96-131/41-81 98-100 PE: abdomen soft, nontender drain in place at right perineum, scant drainage, soft brown stool in area perineum bilaterally nontender, no significant swelling or erythema CBC, BMP 07/03/17 07:50 07/03/17 07:50 WBC normal A/P: POD2 s/p I&D with drain for perirectal abscess doing well pt to keep pads in underwear for drainage ok to shower daily and prn after bowel movements to keep area clean pt has my card to f/u in clinic on Tuesday for drain removal would encourage tylenol prn for pain vs percocet as able continue stool softener while using narcotic postop instructions in discharge plan Problem List - Problems (1) Perirectal abscess Code(s): K61.1 - RECTAL ABSCESS (2) Proctitis Code(s): K62.89 - OTHER SPECIFIED DISEASES OF ANUS AND RECTUM
[2017-07-03] MEDS: POLYETHYLENE GLYCOL 3350 119 GM BTL PO SCH ×2 (14:31→21:32)
[2017-07-03] MEDS: SODIUM CHLORIDE 1,000 ML IV SCH (18:48)
[2017-07-04] MEDS: PIPERACILLIN/TAZOB 4.5 GM 100 ML IVPB SCH ×3 (01:44→18:03)
[2017-07-04] MEDS: ACETAMINOPHEN 325 MG TABLET (FP) PO PRN ×3 (04:01→21:59)
[2017-07-04] MEDS: DOCUSATE SODIUM 100 MG CAPSULE (FP) PO SCH ×3 (06:05→21:59)
[2017-07-04] MEDS: ENOXAPARIN NA (PORCINE) 40 MG/0.4 ML DISP.SYRIN SQ SCH (10:30)
[2017-07-04] MEDS: POLYETHYLENE GLYCOL 3350 119 GM BTL PO SCH ×2 (10:31→22:00)
--- NOTE | 2017-07-04 11:56 | PN ---
Progress Note (short form) - Note Progress Note: Patient with perirectal abscess s/p incision and drainage with drain placement in OR. Feeling better daily. Tolerating regular diet. No nausea or fevers. On IV antibiotics and oral pain meds. Having BMs. Showered yesterday, not yet today. Vital Signs Period Temp Pulse Resp BP Sys/Salcido Pulse Ox Last 24 Hr 98.1 F-98.8 F 64-82 18-20 100-123/48-75 PE: abdomen soft, nontender drain in place at right perineum, small yellow/brown drainage on pad, soft brown stool around drain but wound otherwise clean perineum bilaterally nontender, no significant swelling or erythema no new labs A/P: POD3 s/p I&D with drain for perirectal abscess doing well pt to keep pads in underwear for drainage shower daily and prn after bowel movements to keep area clean pt has my card to f/u in clinic on Tuesday for drain removal would encourage tylenol prn for pain continue stool softener if using narcotic postop instructions in discharge plan Problem List - Problems (1) Perirectal abscess Code(s): K61.1 - RECTAL ABSCESS (2) Proctitis Code(s): K62.89 - OTHER SPECIFIED DISEASES OF ANUS AND RECTUM
--- NOTE | 2017-07-04 14:45 | PN ---
Physical Exam: SUBJECTIVE: Patient seen and examined at the bedside. States she feels well. Denies any pain. OBJECTIVE: Wound culture is pending 2 organisms. She is currently on Zosyn, awaiting final sensitivities ID following Vital Signs Period Temp Pulse Resp BP Sys/Salcido Pulse Ox Last 24 Hr 97.9 F-98.8 F 63-82 16-20 100-123/48-75 GENERAL: The patient is awake, alert, and fully oriented, in no acute distress. HEAD: Normal with no signs of trauma. LUNGS: Breath sounds equal, clear to auscultation bilaterally, no wheezes, no crackles, no accessory muscle use. HEART: Regular rate and rhythm, S1, S2 without murmur, rub or gallop. ABDOMEN: Soft, nontender, nondistended, normoactive bowel sounds, no guarding, no rebound RECTAL: Pezzer drain in place, again with only minimal serosanguinous drainage on dressing; no surrounding erythema or exudate EXTREMITIES: 2+ pulses, warm, well-perfused, no edema. NEUROLOGICAL: Cranial nerves II through XII grossly intact. Normal speech, gait not observed. Active Medications Generic Name Dose Route Start Last Admin Trade Name Freq PRN Reason Stop Dose Admin Acetaminophen 650 mg 07/03/17 10:48 07/04/17 10:29 Tylenol - PO 07/04/17 17:43 650 mg Q6H PRN Administration PAIN Docusate Sodium 100 mg 07/01/17 22:00 07/04/17 13:47 Colace - PO 100 mg TID DIANA Administration Enoxaparin Sodium 40 mg 07/02/17 14:00 07/04/17 10:30 Lovenox - SQ 40 mg DAILY DIANA Administration Piperacillin Sod/Tazobactam Sod 100 mls @ 200 mls/hr 07/02/17 10:00 07/04/17 10 :30 Zosyn 4.5gm Ivpb (Pre-Docked) IVPB 200 mls/hr Q8H-IV DIANA Administration Protocol Ondansetron HCl 4 mg 07/01/17 17:56 Zofran Injection IVPB Q6H PRN NAUSEA Polyethylene Glycol 17 gm 07/03/17 12:30 07/04/17 10:31 Miralax (For Daily Use) - PO 17 grams BID DIANA Administration ASSESSMENT/PLAN: Patient is a 26 year old female with no significant past medical history. She was admitted on 07/01/2017 for a perirectal abscess and proctitis. 07/01/17 CT Pelvis: Bowel: diffuse wall thickening involving the rectum, proctitis suspected; Peritoneum: triangular fluid collection, largest on right, smaller on left, may connect, most likely an abscess ID: Sepss: Crissy-rectal abscess A/P: Presented to ED with WBC 17.2 and tachycardia WBC normalizing, will repeat in a.m. tachycardia resolved Patient is s/p I&D by Dr. Larkin on 07/11/2017. Patient to follow up with surgeon for drain removal on Tuesday. Cultures pending, two organisms identified 20F Pezzer drain in place, peripad with scant sero sang drainage On Zosyn (day 3), on a bowel regimen of colace, miralax GI: Proctitis A/P: related to the perirectal abscess? GI consulted On Zosyn F.E.N. Fluids: Tolerating PO Electrolytes: wnl Nutrition: regular diet Prophylaxis: DVT: Lovenox GI: deferred Disposition: continues to require inpatient care. Full Code. Visit type - Emergency Visit Emergency Visit: Yes ED Registration Date: 07/01/17 Care time: The patient presented to the Emergency Department on the above date and was hospitalized for further evaluation of their emergent condition. - New Patient This patient is new to me today: Yes Date on this admission: 07/04/17 - Critical Care Critical Care patient: No - Discharge Referral Referred to [facility] No
--- NOTE | 2017-07-04 18:36 | CON.GI ---
Consult Consult Specialty:: GASTROENTEROLOGY - History of Present Illness Chief Complaint: PELVIC PAIN/PERIRECTAL ABSCESS History of Present Illness: 26 YEAR OLD FEMALE STARTED TO GET SYMPTOMS OF PELVIC PAIN ABOUT ONE AND A HALF WEEKS AGO. PRIOR TO THAT SHE HAS HAD NO GI COMPLAINTS OF RECTAL DISCHARGE OR DIARRHEA. THERE IS NO RECTAL BLEEDING OR FAMILY HISTORY OF COLITIS OR IBD. SHE WENT TO HER LIBRARIAN HELPER LAST WEEK AND A PELVIC EXAM WAS DONE THAT THE PATIENT SAYS WAS NORMAL. THE PAIN CONTINUED AND SHE WENT BACK ANFD HASD A VAGINAL AND PELVIC SONOGRAM THAT SHE STATES WAS NEGATIVE. THE PAIN CONTINUED AND SHE CAME TO THE ED. THE CT SCAN OF THE PELVIS REVEALED A PERIRECTAL ABSCESS AND INFLAMMATION OF THE RECTUM. AN IUD WAS IN PLACE. SHE HAS HAD THE ABSCESS SURGICALLY DRAINED. NO LIBRARIAN HELPER OR GI HAS YET TO SEE THE PATIENT. SHE IS FEELING MUCH BETTER AND HAS BEEN CLEARED TO BE DISCHARGED BY THE SURGEONS. 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: Alzheimer's, CVA, Dementia, Migraine, Multiple Sclerosis, Peripheral Neuropathy, Parkinson's, Seizure, Syncope, TIA, Vertigo, Other Cardio/Vascular: No: AFIB, Aneurysm, Aortic Insufficiency, Aortic Stenosis, CAD , CHF, Deep Vein Thrombosis, HTN, Hyperlipdemia, DE, Mitral Insufficiency, Mitral Stenosis, Murmur, Pulmonary Hypertension, Other Pulmonary: No: Asthma, Bronchitis, Cancer, COPD, O2 Dependent, Pneumonia, Previously Intubated, Pulmonary Embolus, Pulmonary Fibrosis, Sleep Apnea, Other Gastrointestinal: No: Ascites, Cancer, Constipation, Crohn's Disease, Diverticulitis, Diverticulosis, Esophageal Varices, Gastritis, GERD, GI Bleed, Hemorrhoids, Hiatal Hernia, Inflamatory Bowel Disease, Irritable Bowel Disease, Pancreatitis, Peptic Ulcer Disease, Ulcerative Colitis, Other Hepatobiliary: No: Cirrhosis, Cholelithiasis, Cholecystitis, Choledocholithiasis , Hepatitis A, Hepatitis B, Hepatitis C, Other Renal/: No: Renal Failure, Renal Inusuff, BPH, Cancer, Hematuria, Hemodialysis , Neurogenic Bladder, Renal Calculi, UTI, Other Reproductive: No: Ectopic , Endometriosis, Fibroids, PID, Polycystic Ovary Syndrome, Postmenopausal, Other ...: No Heme/Onc: No: Anemia, B12 Deficiency, Bleeding Disorder, Cancer, Current Chemotherapy, Current Radiation Therapy, Hemochromatosis, Hypercoaguable State, Myeloproliferative Synd, Sickle Cell Disease, Sickle Cell Trait, Thrombocytopenia, Other Infectious Disease: No: AIDS, C-Diff, Herpes Zoster, HIV, MRSA, STD's, Tuberculosis, VREF, Other Psych: No: Addictions, Anxiety, Bipolar, Depression, Panic, Psychosis, Schizophrenia, Other Musculoskeletal: No: Bursitis, Chronic low back pain, Hemiparesis, Hemiplegia, Osteoarthritis, Paraplegia, Other Rheumatology: No: Fibromyalgia, Gout, Lupus, Rheumatoid Arthritis, Sarcoidosis, Vasculitis, Other Endocrine: No: [place]'s Disease, [place]'s Disease, Diabetes Insipidus, Diabetes Mellitus, Hyperparathyroidism, Hyperthyroidism, Hypothyroidism, Osteopenia, SIADH, Other Dermatology: No: Basal Cell, Cellulitis, Eczema, Melanoma, Psoriasis, Squamous Cell, Other - Past Surgical History Past Surgical History: Yes: (x2) Additional Surgical History: IUD in place x 1 year - Alcohol/Substance Use Hx Alcohol Use: Yes (social/holidays) History of Substance Use: reports: None - Smoking History Smoking history: Never smoked Have you smoked in the past 12 months: No - Social History Usual Living Arrangement: With Spouse Home Medications - Allergies Allergies/Adverse Reactions: Allergies Allergy/AdvReac Type Severity Reaction Status Date / Time No Known Allergies Allergy Verified 07/01/17 06:32 - Home Medications Home Medications: Ambulatory Orders NK [No Known Home Medication] 05/31/17 Family Disease History - Family Disease History Family History: Unremarkable Review of Systems - Review of Systems Constitutional: reports: No Symptoms Eyes: reports: No Symptoms HENT: reports: No Symptoms Neck: reports: No Symptoms Cardiovascular: reports: No Symptoms Respiratory: reports: No Symptoms Gastrointestinal: reports: No Symptoms Genitourinary: reports: Other (PELVIC PAIN) Musculoskeletal: reports: No Symptoms Neurological: reports: No Symptoms Endocrine: reports: No Symptoms Hematology/Lymphatic: reports: No Symptoms Psychiatric: reports: No Symptoms Physical Exam-GI Vital Signs: Vital Signs Temperature 97.9 F 07/04/17 14:00 Pulse Rate 63 07/04/17 14:00 Respiratory Rate 16 07/04/17 14:00 Blood Pressure 120/68 07/04/17 14:00 O2 Sat by Pulse Oximetry (%) 100 07/04/17 09:00 Constitutional: Yes: Well Nourished Eyes: Yes: Conjunctiva Clear HENT: Yes: Atraumatic Neck: Yes: Supple Cardiovascular: Yes: Regular Rate and Rhythm Respiratory: Yes: Regular ...Auscultate: Yes: Normoactive Bowel Sounds ...Palpate: Yes: Soft ...Rectal Exam: Yes: Other (DRAIN) Extremities: Yes: WNL Labs: CBC, BMP 07/03/17 07:50 07/03/17 07:50 Imaging - Results Cat Scan: Image Reviewed Problem List - Problems (1) Ischiorectal abscess Assessment/Plan: SHE HAS HAD NO PREVIOUS GI SYMPTOMS. SHE IS SEXUALLY ACTIVE WITH ONE PARTNER. THE SEX IS UNPROTECTED. HER PARTNER HAS NO ILLNESSES. SHE SHOULD BE SEEN BY LIBRARIAN HELPER PRIOR TO DISCHARGE. SHE NEEDS A SIGMOIDOSCOPY WHICH CAN BE DONE AN OUTPATIENT. I AM NOT IN [place] TOMORROW AND SHE CAN BE DISCHARGED AND I WILL ARRANGE THIS AN OUTPATIENT. Code(s): K61.3 - ISCHIORECTAL ABSCESS (2) Proctitis Code(s): K62.89 - OTHER SPECIFIED DISEASES OF ANUS AND RECTUM (3) Sepsis Code(s): A41.9 - SEPSIS, UNSPECIFIED ORGANISM
[2017-07-05] MEDS: PIPERACILLIN/TAZOB 4.5 GM 100 ML IVPB SCH ×2 (02:21→11:06)
[2017-07-05] MEDS: DOCUSATE SODIUM 100 MG CAPSULE (FP) PO SCH (06:26)
[2017-07-05 08:07] LABS: CHLA.TRACHOMATI Negative (Negative)
[2017-07-05 08:41] LABS: BASOPHIL 0.7 % (0-2.0); EOSINOPHIL 3.9 % (0-4.5); MCH 31.4 pg (25.7-33.7); MCHC 34.1 g/dl (32.0-36.0); MEAN CELL VOLUME 92.2 fl (80-96); NEUTROPHILS 58.3 % (42.8-82.8); PLATELET COUNT 306 K/MM3 (134-434); RDW 12.8 % (11.6-15.6); WHITE BLOOD COUNT 4.3 K/mm3 (4.0-10.0)
[2017-07-05 08:51] LABS: ALBUMIN 2.9 g/dl (3.4-5.0); ANION GAP 10 (8-16); BILIRUBIN,TOTAL 0.4 mg/dL (0.2-1.0); CALCIUM 9.1 mg/dL (8.5-10.1); CO2 25 mmol/L (21-32); CREATININE 0.8 mg/dL (0.55-1.02); GLUCOSE,RANDOM 95 mg/dL (74-106); SGOT/AST 72 U/L (15-37); SGPT/ALT 96 U/L (12-78); TOT PROT 7.2 g/dl (6.4-8.2)
[2017-07-05 08:52] LABS: ALK PHOS 109 U/L (45-117)
[2017-07-05] MEDS: ACETAMINOPHEN 325 MG TABLET (FP) PO PRN (11:05)
[2017-07-05] MEDS: ENOXAPARIN NA (PORCINE) 40 MG/0.4 ML DISP.SYRIN SQ SCH (11:06)
[2017-07-05] MEDS: POLYETHYLENE GLYCOL 3350 119 GM BTL PO SCH (11:07)
--- NOTE | 2017-07-05 12:48 | DS ---
Physical Exam: SUBJECTIVE: Patient seen and examined, states she feels well. She is having bowel movements without difficulty. Denies pain. OBJECTIVE: She remains afebrile, WBC within normal limits Has been on Zosyn since admission, will discharge on 2 more days of Augmentin. MONORAIL CRANE OPERATOR Dr. Knowles came and evaluated patient Patient asked for referrals for new PCP, MONORAIL CRANE OPERATOR and will follow with Dr. Muller as an outpatient. Wound culture shows 4 different organisms Vital Signs Period Temp Pulse Resp BP Sys/Salcido Pulse Ox Last 24 Hr 97.9 F-99.4 F 62-76 16-20 107-120/64-72 100 PHYSICAL EXAM GENERAL: The patient is awake, alert, and fully oriented, in no acute distress. HEAD: Normal with no signs of trauma. LUNGS: Breath sounds equal, clear to auscultation bilaterally, no wheezes, no crackles, no accessory muscle use. HEART: Regular rate and rhythm, S1, S2 without murmur, rub or gallop. ABDOMEN: Soft, nontender, nondistended, normoactive bowel sounds, no guarding, no rebound RECTAL: Pezzer drain in place, again with only minimal serosanguinous drainage on dressing; no surrounding erythema or exudate EXTREMITIES: 2+ pulses, warm, well-perfused, no edema. NEUROLOGICAL: Cranial nerves II through XII grossly intact. Normal speech, gait not observed. LABS Laboratory Results - last 24 hr 07/01/17 07/05/17 07/05/17 13:25 07:15 07:15 WBC 4.3 D RBC 3.82 Hgb 12.0 D Hct 35.2 D MCV 92.2 MCH 31.4 MCHC 34.1 RDW 12.8 Plt Count 306 D MPV 7.0 L Neutrophils % 58.3 Lymphocytes % 27.9 D Monocytes % 9.2 Eosinophils % 3.9 Basophils % 0.7 Sodium 138 Potassium 4.1 Chloride 103 Carbon Dioxide 25 Anion Gap 10 BUN 7 D Creatinine 0.8 Creat Clearance w eGFR > 60 Random Glucose 95 Calcium 9.1 Total Bilirubin 0.4 D AST 72 H D ALT 96 H D Alkaline Phosphatase 109 D Total Protein 7.2 D Albumin 2.9 L D Rectal C trach JUAN FRANCISCO Negative Rectal N gonorrh JUAN FRANCISCO Negative HOSPITAL COURSE: Date of Admission:07/01/17 Date of Discharge: 07/05/17 ASSESSMENT/PLAN: Patient is a 26 year old female with no significant past medical history. She was admitted on 07/01/2017 for a perirectal abscess and proctitis. 07/01/17 CT Pelvis: Bowel: diffuse wall thickening involving the rectum, proctitis suspected; Peritoneum: triangular fluid collection, largest on right, smaller on left, may connect, most likely an abscess ID: Sepsis secondarty to a Crissy-rectal abscess - resolved A/P: Presented to ED with WBC 17.2 and tachycardia both resolved No Leukocytosis S/P I&D by Dr. Larkin on 07/11/2017. Patient to follow up with surgeon for drain removal tomorrow Cultures with 4 different organisms identified, On Zosyn (day 4) will be d/c with 2 more days of Augmentin 20F Pezzer drain in place, peripad with scant sero sang drainage Continue on a bowel regimen of colace, miralax GI: Proctitis - acute A/P: likely related to the perirectal abscess, to follow up with Dr. Muller as an outpatient once she heals from crissy rectal abscess and cleared by surgeon. MONORAIL CRANE OPERATOR: PID Seen by MONORAIL CRANE OPERATOR to rule out PID As per MONORAIL CRANE OPERATOR, patient can follow as an outpatient Referral given to patient Disposition: Discharge today with follow up tomorrow with surgery to remove drain. She was seen by MONORAIL CRANE OPERATOR today. New PCP referral given to patient at her request. MONORAIL CRANE OPERATOR and GI follow up as an outpatient. Minutes to complete discharge: 60 Discharge Summary Reason For Visit: ABSCESS,PROCTITIS Current Active Problems Abscess (Acute) DVT prophylaxis (Acute) Ischiorectal abscess (Acute) Perirectal abscess (Acute) Proctitis (Acute) Sepsis (Acute) Condition: Improved - Instructions Diet, Activity, Other Instructions: You had incision and drainage of a perirectal abscess with drain placement on 07/01/[address] Brian Larkin of [facility]. Use Tylenol as needed for pain as directed on the bottle. If you are prescribed a narcotic combination with Tylenol for pain as needed, use it as directed and switch to Tylenol as your pain decreases. Stool softener is advised while using the narcotic to keep your bowels soft and moving. You should shower daily and after bowel movements to keep the area clean. Keep a pad in your underwear to collect drainage from the wound and drain tube. Call Dr. Larkin's office at [phone] to make your follow up appointment for drain removal on Tuesday. Clinic is in the [facility] on the first floor of [facility]. Also call Dr. Larkin if you have: fever of 101F or greater increasing pain not controlled by pain medication increased or unusual bleeding or drainage from your wound increasing redness or swelling in your wound area vomiting inability to urinate Please see your assembler 1st shift within 1 week after discharge for further evaluation. Take antibiotics for 2 more days as prescribed. Referrals: Usman Liang MD [Staff Physician] - STAFF,NOT ON [Primary Care Provider] - Naun Bull MD [Staff Physician] - Guero Muller MD [Staff Physician] - Disposition: HOME - Home Medications Comprehensive Discharge Medication List: Ambulatory Orders Acetaminophen [Tylenol .Regular Strength -] 650 mg PO Q6H PRN #0 tablet Acetaminophen [Tylenol .Regular Strength -] 650 mg PO Q6H PRN #0 tablet Amox-Tr/K Cl [Augmentin 875-125mg Tablet -] 1 tab PO BID@0800,1730 #4 tablet 07/14 Docusate Sodium [Colace -] 100 mg PO TID #120 cap 07/05/17 Polyethylene Glycol 3350 [Miralax 119 gm Btl -] 17 gm PO BID #1 bottle 07/05/17 This patient is new to me today: No Emergency Visit: Yes ED Registration Date: 07/01/17 Care time: The patient presented to the Emergency Department on the above date and was hospitalized for further evaluation of their emergent condition. Critical Care patient: No - Discharge Referral Referred to [facility] Yes Physician Referral: Usman Montaño MD ([facility])
--- NOTE | 2017-07-05 13:12 | PN ---
Progress Note (short form) - Note Progress Note: Patient with perirectal abscess s/p incision and drainage with drain placement in OR. Feeling better daily. Tolerating regular diet. No nausea or fevers. On antibiotics and oral pain meds. Having BMs. Showering. Vital Signs Period Temp Pulse Resp BP Sys/Salcido Pulse Ox Last 24 Hr 97.9 F-99.4 F 62-76 16-20 107-120/64-72 100 PE: abdomen soft, nontender drain in place at right perineum, scant yellow/brown drainage on pad, wound generally clean perineum bilaterally nontender, no significant swelling or erythema no new labs A/P: POD4 s/p I&D with drain for perirectal abscess doing well pt to keep pads in underwear for drainage shower daily and prn after bowel movements to keep area clean pt has my card to f/u in clinic on Tuesday for drain removal would encourage tylenol prn for pain continue stool softener if using narcotic postop instructions in discharge plan Problem List - Problems (1) Perirectal abscess Code(s): K61.1 - RECTAL ABSCESS (2) Proctitis Code(s): K62.89 - OTHER SPECIFIED DISEASES OF ANUS AND RECTUM
--- NOTE | 2017-07-05 13:40 | HOSP ---
Physical Examination Vital Signs: Vital Signs Temperature 98.1 F 07/05/17 07:50 Pulse Rate 76 07/05/17 07:50 Respiratory Rate 20 07/05/17 07:50 Blood Pressure 117/68 07/05/17 07:50 O2 Sat by Pulse Oximetry (%) 100 07/04/17 21:00 Labs: CBC, BMP 07/05/17 07:15 07/05/17 07:15 Hospitalist Encounter Assessment: Received micro blog from ID asking that patient be discharged on Levaquin and Flagyl instead of Augmentin based on microbiology Both medications have been ordered through patient's home pharmacy and the Augmentin has been discontinued Acidophilis ordered while patient is on both these antibiotics
[2017-07-05] MEDS ORDERED: metroNIDAZOLE 250 MG TABLET PO SCH (14:00)
[2017-07-05 15:55] VITALS: BP 109/59; PULSE 70; TEMP 98
[2017-07-05] MEDS ORDERED: AMOX TR/POT CLAV 875MG/125MG TABLETS (FP) PO SCH (17:30)
[2017-07-06] MEDS ORDERED: LEVOFLOXACIN 500 MG TABLET (FP) PO SCH (10:00)
== END 2017-07-05 13:37 | disposition home or self-care (01) | DRG 710 ==
LOC: JER 06:11 → JERBED 11:37 → J5S 19:59
PROVIDERS: ADMIT Internal Medicine; ATTEND Nurse Practitioner Family
PROC: 0W9G0ZX Drainage of Peritoneal Cavity, Open Approach, Diagnostic (ICD-10-PCS; 2017-07-01)
PROC: 0D9P00Z Drainage of Rectum with Drainage Device, Open Approach (ICD-10-PCS; principal; 2017-07-01 14:30)
DX: A41.89 Other specified sepsis (principal); K61.3 Ischiorectal abscess; K62.89 Other specified diseases of anus and rectum; N73.9 Female pelvic inflammatory disease, unspecified; E87.6 Hypokalemia; E87.1 Hypo-osmolality and hyponatremia; R00.0 Tachycardia, unspecified
CPT/HCPCS: 36415; 72193-TC; 80048; 80053; 81003; 81015; 83735; 84703; 85025; 85651; 86140; 86593; 87040; 87070; 87076; 87077; 87186; 87205; 87491; 87591; 94760; 99285-25